=== PATIENT | female | born 1940 | race Caucasian/White ===

== ENCOUNTER 2016-09-05 12:55 | Emergency (ER) | payer MEDICARE, BC ==
[2015-01-08 08:18] VITALS: BMI 23.3
[~2016-09-05 12:55] MED LIST: AVAPRO75 MG PO; BAYER CHEWABLE81 MG PO; BIOTIN5 MG PO; CALCIUM 500 + D1 TAB PO; DITROPAN X10 MG/BOTT PO; LUTEIN20 MG PO; METROLOTION59 ML TP; MIRALAX17 GM PO; MULTIPLE VITAMI1 TA1 PO; PRAVACHOL20 MG PO; PROTONIX40 MG PO; SYNTHROID50 MCG PO
== END 2016-09-05 15:11 | disposition home or self-care (01) ==
LOC: D.ER 12:55
DX: S50.12XA Contusion of left forearm, initial encounter (principal); W19.XXXA Unspecified fall, initial encounter; Y93.89 Activity, other specified; Y92.89 Other specified places as the place of occurrence of the external cause; S20.212A Contusion of left front wall of thorax, initial encounter; S80.02XA Contusion of left knee, initial encounter; E07.9 Disorder of thyroid, unspecified; I10 Essential (primary) hypertension; E78.00 Pure hypercholesterolemia, unspecified

== ENCOUNTER 2016-09-18 05:51 | Day surgery (SDC) | payer MEDICARE, BC ==
[2016-09-17 12:19] LABS: HEMATOCRIT 43.2 % (36.0-48.0); HEMOGLOBIN 13.9 g/dL (12-16); MCH 28.6 pg (26.0-34.0); MCHC 32.2 g/dL (31.0-37.0); MCV 88.9 fL (80.0-100.0); MEAN PLATELET VOLUME 11.9 fL (7.4-10.4); RBC 4.86 10x6/uL (4.00-5.40); RDW 14.3 % (11.5-14.5); WBC 11.9 10x3/uL (4.8-10.8)
[~2016-09-18] VITALS: Ht 162.6 cm; Wt 63.0 kg
[~2016-09-18 05:51] MED LIST changes: +LIPITOR10 MG PO; +PRESERVISION AR1 CAP PO
[2016-09-18 08:22] VITALS: Ht 162.6 cm; Wt 63.0 kg
[2016-09-18] MEDS ORDERED: HYDROCODONE-APA1 TAB PO (10:58)
--- NOTE | 2016-09-18 13:14 | NUR ---
1210--IV DC'D. CARLOS MATHEWS 1220--DISCHARGE INSTRUCTIONS GIVEN, PT VERBALIZES UNDERSTANDING. PT OFF UNIT VIA WC. CARLOS MATHEWS
--- NOTE | 2016-10-16 14:01 | OP ---
PATIENT NAME: EDWAR CHRISTENSEN MEDICAL RECORD: [id number] :40 LOCATION:D.OPS ADMISSION DATE: SURGEON: IBIS ROSALES MD DATE OF OPERATION: 09/18/2016 Orthopedic Surgery Operative Note PREOPERATIVE DIAGNOSIS: Hematoma of left forearm. POSTOPERATIVE DIAGNOSIS: Hematoma of left forearm. PROCEDURE: Debridement of hematoma of left forearm. SURGEON: Ibis Rosales MD ANESTHESIA: General. INTRAOPERATIVE COMPLICATIONS: None. SUMMARY OF PATHOLOGIC FINDINGS: Essentially none. The patient had a large hematoma of the left forearm consistent with the preoperative diagnosis, quite simply had lasted for over 3 weeks. OPERATIVE SUMMARY IN DETAIL: After obtaining the appropriate preoperative orthopedic surgery consent as well as anesthetic consultation, evaluation and clearance, the patient was brought to the operating room and placed on the operating table in supine position. After adequate general laryngeal mask airway was administered, the patient's left forearm was prepped and draped in routine sterile fashion. Incision was made directly over the hematoma whereupon the hematoma came out still gelatinous and not at all with lysis. The entire area was cleaned out using a bulb syringe, as well as curettage and rongeur to be sure that all the edges were free from clot. Having completed this, the wound was closed with #1 Vicryl followed by 2-0 Vicryl and skin lavonne. Sterile dressings were applied. The patient was awakened, taken to recovery room in stable condition. All final needle and sponge counts were correct. TRANSINT:[id number] Voice Confirmation ID: [id number] DOCUMENT ID: [id number] IBIS ROSALES MD at 1401 CC: [id number] DICTATION DATE: 10/13/16 1644 WAREHOUSE TEAM LEADER: 10/13/16 2359 [facility] 09/18/16 [place] [address]
== END 2016-09-18 12:20 | disposition home or self-care (01) ==
LOC: D.OPS 05:51 → D.PAN 10:00 → D.OPS 10:00
PROVIDERS: Anesthesiology
DX: S59.812A Other specified injuries left forearm, initial encounter (principal); Z01.812 Encounter for preprocedural laboratory examination; X58.XXXA Exposure to other specified factors, initial encounter

== ENCOUNTER → 2018-02-25 08:32 | Outpatient (CLI) | payer MEDICARE, BC ==
[2016-09-18 08:22] VITALS: BMI 23.9
[~2018-02-25 08:32] MED LIST changes: +HYDROCODONE-APA1 TAB PO
== END | disposition home or self-care (01) ==
LOC: D.MRI 08:32
DX: M54.16 Radiculopathy, lumbar region (principal)

== ENCOUNTER 2018-07-17 10:19 | Emergency (ER) | payer MEDICARE, BC ==
[~2018-07-17] VITALS: Ht 162.6 cm; Wt 63.6 kg
[2018-07-17 10:24] VITALS: Ht 162.6 cm; Wt 63.6 kg
[2018-07-17] MEDS ORDERED: LOZOL1.25 MG PO (10:29)
[2018-07-17] MEDS ORDERED: LEXAPRO5 MG PO (10:29)
[2018-07-17] MEDS ORDERED: ZETIA10 MG PO (10:29)
[2018-07-17] MEDS ORDERED: XARELTO20 MG PO (10:30)
[2018-07-17] MEDS ORDERED: OXYBUTYNIN CHLOR5 MG PO (10:30)
[2018-07-17] MEDS ORDERED: ULTRAM50 MG PO (10:30)
[2018-07-17] MEDS ORDERED: IMBRUVICA140 MG PO (10:31)
[2018-07-17 11:00] LABS: BASOPHILS 0.1 % (0-2); EOSINOPHILS 1.1 % (0-7); HEMATOCRIT 40.3 % (36.0-48.0); IMMATURE GRANULOCYTES 0.2 % (0-5); LYMPHOCYTES 18.5 % (15-50); MCH 28.7 pg (26.0-34.0); MCHC 32.3 g/dL (31.0-37.0); MONOCYTES 8.9 % (2-11); NEUTROPHILS 71.2 % (40-80); PLATELET COUNT 154 10x3/uL (130-400); RBC 4.53 10x6/uL (4.00-5.40); RDW 14.4 % (11.5-14.5); WBC 10.8 10x3/uL (4.8-10.8)
[2018-07-17 11:05] LABS: ALBUMIN 3.4 g/dL (3.4-5.0); ANION GAP 8.3 mmol/L (8-16); BILIRUBIN - TOTAL 0.67 mg/dL (0.2-1.3); CALCIUM 8.7 mg/dL (8.5-10.1); CARBON DIOXIDE 34.5 mmol/L (21.0-32.0); CREATININE - SERUM 0.9 mg/dL (0.6-1.3); POTASSIUM - SERUM 3.8 mmol/L (3.5-5.1); PROTEIN - SERUM 6.6 g/dL (6.4-8.2)
[2018-07-17 14:44] VITALS: BP 128/68
[2018-07-18] MEDS ORDERED: PROBIOTIC1 EAC1 PO (16:45)
== END 2018-07-17 14:45 | disposition home or self-care (01) ==
LOC: D.ER 10:19
PROVIDERS: Emergency Medicine
DX: M25.562 Pain in left knee (principal)

== ENCOUNTER 2018-07-18 11:41 | Inpatient (IN) | payer MEDICARE, BC ==
[~2018-07-18] VITALS: Ht 165.1 cm; Wt 63.5 kg
[~2018-07-18 11:41] MED LIST changes: +IMBRUVICA140 MG PO; +LEXAPRO5 MG PO; +LOZOL1.25 MG PO; +OXYBUTYNIN CHLOR5 MG PO; +ULTRAM50 MG PO; +XARELTO20 MG PO; +ZETIA10 MG PO
[2018-07-18 13:00] VITALS: BP 119/78
[2018-07-18 13:29] LABS: HEMATOCRIT 40.1 % (36.0-48.0); MCH 28.8 pg (26.0-34.0); MCHC 32.4 g/dL (31.0-37.0); MCV 88.7 fL (80.0-100.0); MEAN PLATELET VOLUME 12.8 fL (7.4-10.4); PLATELET COUNT 143 10x3/uL (130-400); RBC 4.52 10x6/uL (4.00-5.40); RDW 14.2 % (11.5-14.5); WBC 9.8 10x3/uL (4.8-10.8)
[2018-07-18 13:45] LABS: ALBUMIN 3.4 g/dL (3.4-5.0); ANION GAP 10.7 mmol/L (8-16); BILIRUBIN - TOTAL 0.64 mg/dL (0.2-1.3); C-REACTIVE PROTEIN 6.9 mg/dL (0.0-0.9); CALCIUM 8.9 mg/dL (8.5-10.1); CARBON DIOXIDE 30.8 mmol/L (21.0-32.0); CREATININE - SERUM 0.9 mg/dL (0.6-1.3); POTASSIUM - SERUM 3.5 mmol/L (3.5-5.1); PROTEIN - SERUM 6.8 g/dL (6.4-8.2)
[2018-07-18 13:57] LABS: EOSINOPHILS 2 % (0-7); LYMPHOCYTES 10 % (15-50); MONOCYTES 10 % (2-11); NEUTROPHILS 76 % (40-80); PLATELET ESTIMATE NORMAL; PLATELET MORPHOLOGY GIANT PLTS PRESENT
[2018-07-18 14:00] VITALS: BP 122/62
[2018-07-18 14:16] LABS: INR 3.52 (0.85-1.17); PROTIME 34.5 SECONDS (11.6-15.0)
[2018-07-18 15:00] VITALS: BP 124/63
[2018-07-18 16:00] VITALS: BP 126/60
[2018-07-18] MEDS ORDERED: PROBIOTIC1 EAC1 PO (16:45)
--- NOTE | 2018-07-18 16:49 | NUR ---
RECIEVED PATIENT FROM ER VIA WHEELCHAIR. AA0X4. ON ROOM AIR, AMBULATORY. C/O POSTERIOR LEFT KNEE PAIN THAT IS AGGRAVATED BY MOVEMENT. IV TO LEFT FOREARM PATENT. DENIES ANY CURRENT NEEDS OR DISCOMFORTS, BED LOWERED AND LOCKED, CALL LIGHT WITHIN REACH. CPOC
[2018-07-18 17:35] VITALS: BP 114/45
[2018-07-18 20:38] LABS: BASOPHILS 0.1 % (0-2); HEMATOCRIT 34.3 % (36.0-48.0); IMMATURE GRANULOCYTES 0.3 % (0-5); LYMPHOCYTES 19.7 % (15-50); MCH 28.6 pg (26.0-34.0); MCHC 32.1 g/dL (31.0-37.0); MCV 89.1 fL (80.0-100.0); MEAN PLATELET VOLUME 12.7 fL (7.4-10.4); MONOCYTES 10.4 % (2-11); NEUTROPHILS 67.5 % (40-80); PLATELET COUNT 144 10x3/uL (130-400); RBC 3.85 10x6/uL (4.00-5.40); RDW 14.4 % (11.5-14.5); WBC 9.7 10x3/uL (4.8-10.8)
[2018-07-18 21:05] LABS: INR 2.13 (0.85-1.17); PROTIME 23.1 SECONDS (11.6-15.0)
[2018-07-18 21:21] LABS: ALBUMIN 2.8 g/dL (3.4-5.0); ANION GAP 6.8 mmol/L (8-16); BILIRUBIN - TOTAL 0.39 mg/dL (0.2-1.3); CALCIUM 7.8 mg/dL (8.5-10.1); CARBON DIOXIDE 31.5 mmol/L (21.0-32.0); CREATININE - SERUM 0.9 mg/dL (0.6-1.3); POTASSIUM - SERUM 3.3 mmol/L (3.5-5.1); PROTEIN - SERUM 5.1 g/dL (6.4-8.2)
[2018-07-18 22:39] LABS: APTT 40.8 SECONDS (22.8-39.4)
[2018-07-19] VITALS: BP 116/38
--- NOTE | 2018-07-19 02:07 | NUR ---
RESULTES FROM MRI IN. PAGE TO DR. ROSALES X2 AWATTING CALL BACK.
[2018-07-19 04:00] VITALS: BP 122/41
[2018-07-19 06:55] LABS: BASOPHILS 0.1 % (0-2); EOSINOPHILS 1.8 % (0-7); HEMATOCRIT 31.3 % (36.0-48.0); IMMATURE GRANULOCYTES 0.2 % (0-5); LYMPHOCYTES 16.8 % (15-50); MCH 28.4 pg (26.0-34.0); MCHC 31.9 g/dL (31.0-37.0); MCV 88.9 fL (80.0-100.0); MEAN PLATELET VOLUME 13.1 fL (7.4-10.4); MONOCYTES 12.1 % (2-11); PLATELET COUNT 149 10x3/uL (130-400); RBC 3.52 10x6/uL (4.00-5.40); RDW 14.5 % (11.5-14.5); WBC 9.6 10x3/uL (4.8-10.8)
[2018-07-19 07:07] LABS: CALC OSMOLALITY 273 mosm/kg (275-300); CALCIUM 7.7 mg/dL (8.5-10.1); CARBON DIOXIDE 30.9 mmol/L (21.0-32.0); CHLORIDE - SERUM 102 mmol/L (98-107); CREATININE - SERUM 0.6 mg/dL (0.6-1.3); GLUCOSE 105 mg/dL (74-106); POTASSIUM - SERUM 3.5 mmol/L (3.5-5.1); SODIUM 137 mmol/L (136-145); UREA NITROGEN 13 mg/dL (7-18); eGFR NON AFRICAN AMERICAN > 90 mL/min (90-120)
--- NOTE | 2018-07-19 07:18 | NUR ---
PT IS RESTING IN BED WITH EYES CLOSED. RESPIRATIONS ARE EVEN AND UNLABORED. PT IS EASILY AROUSED WITH VERBAL STIMULATION. PT C/O SORENESS TO LLE. LLE IS WARM TO TOUCH, NO REDNESS NOTED. PT DENIES NEEDS AT THIS TIME. BED IS IN THE LOWEST POSITION. CALL LIGHT AND BEDSIDE TABLE ARE WITHIN REACH. WILL CONT TO MONITOR.
[2018-07-19 08:38] LABS: CKMB 0.6 U/L (0.0-3.6); CREATINE KINASE 89 UL (21-215)
[2018-07-19 08:55] VITALS: BP 114/31
[2018-07-19 09:06] LABS: ERYTHROCYTE SEDIMENTATION RATE 20 mm/hr (0-30)
--- NOTE | 2018-07-19 09:45 | NUR ---
IR- KNEE ASPIRATION FOR THURSDAY-DUE TO [facility] ON 07/18.
[2018-07-19 13:00] VITALS: BP 124/39
[2018-07-19 13:31] LABS: % SATURATION 12 % (15-55); IRON 23 ug/dl (35-150); TOTAL IRON BIND CAPACITY 185 ug/dl (260-445); UNSAT IRON BIND CAPACITY 162 ug/dl (150-375)
[2018-07-19 13:40] LABS: COLOR YELLOW (YELLOW)
[2018-07-19 13:41] LABS: APPEARANCE CLEAR (CLEAR); BILIRUBIN NEGATIVE (NEGATIVE); GLUCOSE NEGATIVE (NEGATIVE); KETONE NEGATIVE (NEGATIVE); NITRITE NEGATIVE (NEGATIVE); PROTEIN NEGATIVE (NEGATIVE); UROBILINOGEN NORMAL (NORMAL)
[2018-07-19 13:45] LABS: FERRITIN 94 ng/mL (3-244); LDH 160 U/L (81-234)
[2018-07-19 13:46] LABS: BACTERIA FEW /hpf (NONE SEEN); EPITHELIAL CELLS 0-5 /hpf (0-5); MUCUS <1+ /lpf (NONE SEEN); RED CELLS - URINE 0-5 /hpf (0-5); WHITE CELLS - URINE 0-5 /hpf (0-5)
[2018-07-19 14:43] VITALS: Ht 165.1 cm; Wt 63.5 kg
[2018-07-19 16:00] VITALS: BP 123/56
[2018-07-19 20:00] VITALS: BP 160/84
--- NOTE | 2018-07-20 02:48 | NUR ---
AT SHIFT CHGE. REC'D. COMING OUT OF BATHROOM.CONTINUES TO C/O TENDERNESS BEHIND LEFT KNEE WHEN TOUCHED DENIES CALF PAIN ON DORSIFLEXION GOOD PEDAL PULSE.SM. AMT. SWELLING OBSERVED. ELEVATED ON PILLOW WITH NO C/O DECREASE IN SENSATIO.WILL CONTINUE TO MONITOR AND FOLLOW CURRENT PLAN OF CARE
[2018-07-20 04:00] VITALS: BP 137/52
--- NOTE | 2018-07-20 04:00 | NUR ---
I have reviewed this patient and I concur with the Shift Assessment completed by the Licensed Practical Nurse today this shift.
[2018-07-20 06:55] LABS: CALC OSMOLALITY 281 mosm/kg (275-300); CALCIUM 7.6 mg/dL (8.5-10.1); CARBON DIOXIDE 29.5 mmol/L (21.0-32.0); CHLORIDE - SERUM 106 mmol/L (98-107); CREATINE KINASE 94 UL (21-215); CREATININE - SERUM 0.6 mg/dL (0.6-1.3); GLUCOSE 98 mg/dL (74-106); POTASSIUM - SERUM 3.3 mmol/L (3.5-5.1); SODIUM 142 mmol/L (136-145); UREA NITROGEN 10 mg/dL (7-18); eGFR NON AFRICAN AMERICAN > 90 mL/min (90-120)
[2018-07-20 07:01] LABS: BASOPHILS 0 % (0-2); EOSINOPHILS 2.8 % (0-7); HEMATOCRIT 31.4 % (36.0-48.0); IMMATURE GRANULOCYTES 0.4 % (0-5); LYMPHOCYTES 18.4 % (15-50); MCH 28.6 pg (26.0-34.0); MCHC 31.8 g/dL (31.0-37.0); MCV 89.7 fL (80.0-100.0); MEAN PLATELET VOLUME 12.8 fL (7.4-10.4); NEUTROPHILS 66.4 % (40-80); PLATELET COUNT 148 10x3/uL (130-400); RDW 14.3 % (11.5-14.5); WBC 7.2 10x3/uL (4.8-10.8)
[2018-07-20 08:52] VITALS: BP 163/59
[2018-07-20 09:17] LABS: FOLATE (FOLIC ACID) - SERUM >20.0 ng/mL (>3.0)
--- NOTE | 2018-07-20 10:00 | NUR ---
PT AAOX4 RESP EVEN AND NONLABORED, NO SIGNS OF DISTRESS NOTED, NO NEEDS EXPRESSED AT THIS TIME, WANTING TO KNOW ABOUT WHEN THE ASPRIATION WILL BE DONE I EXPRESSED TO PT THAT I WOULD HAVE TO CHECK WITH THE PANFILO MINOR IN REACH
[2018-07-20 10:46] LABS: INR 1.06 (0.85-1.17); PROTIME 13.3 SECONDS (11.6-15.0)
--- NOTE | 2018-07-20 10:59 | MORECARE ---
CASE MANAGEMENT DISCHARGE SUMMARY PATIENT: EDWAR CHRISTENSEN UNIT: [id number] ADM DATE: 07/19/18 AGE: 78 : 40 SEX: F ROOM/BED: D.2239 AUTHOR: LISET NGUYEN PHYSICIAN: REFERRING PHYSICIAN: KAREN RHODES MD DATE OF SERVICE: 07/20/18 Discharge Plan Patient Name: EDWAR CHRISTENSEN Facility: [facility]:[place] : 1940 Planned Disposition: Home Anticipated Discharge Date: Discharge Date: Expected LOS: Initial Reviewer: [email or web address] Initial Review Date: 07/20/2018 Generated: 07/20/18 11:59 am DCPIA - Discharge Planning Initial Assessment Updated by [email or web address]: Yasemin Xiong on 07/20/18 10:58 am * Is the patient Alert and Oriented? Yes * How many steps to enter\exit or inside your home? 2/0 * PCP Dr. Sterling * Pharmacy [address] [facility] * Preadmission Environment Home with Family * ADLs Partial Dependent * Partial ADLs (Assistance needed) Ambulation * Equipment Cane Rolling Walker Wheelchair * List name and contact numbers for known caregivers / representatives who currently or will assist patient after discharge: Dom Yukijuly * Verbal permission to speak to the caregivers and representatives has been obtained from the patient. Yes * Community resources currently utilized None * Additional services required to return to the preadmission environment? No * Can the patient safely return to the preadmission environment? Yes * Has this patient been hospitalized within the prior 30 days at any hospital? No Patient Name: EDWAR CHRISTENSEN Page [id number] at 1059 All edits/amendments must be made on the electronic document DICTATION DATE: 07/20/18 105 UNDERWRITING CONSULTANT: LOI 07/20/18 1059 RPT#: [id number] DC DATE: STATUS: ADM IN [facility] [address] [place] [address] END OF REPORT
--- NOTE | 2018-07-20 11:08 | MORECARE ---
CASE MANAGEMENT DISCHARGE SUMMARY PATIENT: EDWAR OSCAR UNIT: [id number] ADM DATE: 07/19/18 AGE: 78 : 40 SEX: F ROOM/BED: D.2239 AUTHOR: WENDY,DOC PHYSICIAN: REFERRING PHYSICIAN: KAREN RHODES MD DATE OF SERVICE: 07/20/18 Discharge Plan Patient Name: EDWAR OSCAR Facility: [facility]:[place] : 1940 Planned Disposition: Home Anticipated Discharge Date: Discharge Date: Expected LOS: Initial Reviewer: [email or web address] Initial Review Date: 07/20/2018 Generated: 07/20/18 12:08 pm Comments DCP- Discharge Planning Updated by [email or web address]: Yasemin Xiong on 07/20/18 10:[address] Patient Name: EDWAR OSCAR Admission Status: ER Accout number: [id number] Admission Date: 07-19-2018 : 1940 Admission Diagnosis: Attending: KAREN RHODES Current LOS: 1 Anticipated DC Date: Planned Disposition: Home Primary Insurance: MEDICARE A & B Discharge Planning Comments: CM met with patient and her to discuss discharge planning/needs. She is getting in the shower and gives permission to speak with her concerning discharge plan. He states she lives with him. She is independent with all ADL's and AIDL's. States she has been using the walker the last few days prior to admission to aide in ambulation. I discussed availability of SNF, inpatient rehab, additional DME and home health services. At this time, declines needs. States "unsure of what we need until we know how her knee gets." CM will continue to follow and assist with discharge planning/needs. Bacon De Rinder: Yasemin Xiong DCPIA - Discharge Planning Initial Assessment Updated by [email or web address]: Yasemin Xiong on 07/20/18 10:58 am * Is the patient Alert and Oriented? Yes * How many steps to enter\\exit or inside your home? 2/0 * PCP Dr. Sterling * Pharmacy [facility] by [facility] * Preadmission Environment Home with Family * ADLs Partial Dependent * Partial ADLs (Assistance needed) Ambulation * Equipment Cane Rolling Walker Wheelchair * List name and contact numbers for known caregivers / representatives who currently or will assist patient after discharge: Dom Oscar * Verbal permission to speak to the caregivers and representatives has been obtained from the patient. Yes * Community resources currently utilized None * Additional services required to return to the preadmission environment? No * Can the patient safely return to the preadmission environment? Yes * Has this patient been hospitalized within the prior 30 days at any hospital? No Last DP export: 07/20/18 9:59 a Patient Name: EDWAR OSCAR Page 73730 at 1108 All edits/amendments must be made on the electronic document DICTATION DATE: 07/20/181107 HUB CUTTER: LOI 07/20/181107 RPT#: [id number] DC DATE: STATUS: ADM IN [facility] [address] [place] [address] END OF REPORT
[2018-07-20 12:23] LABS: APPEARANCE CLEAR (CLEAR); BILIRUBIN NEGATIVE (NEGATIVE); COLOR YELLOW (YELLOW); GLUCOSE NEGATIVE (NEGATIVE); KETONE NEGATIVE (NEGATIVE); NITRITE NEGATIVE (NEGATIVE); PROTEIN NEGATIVE (NEGATIVE); UROBILINOGEN NORMAL (NORMAL)
[2018-07-20 12:24] LABS: BACTERIA MODERATE /hpf (NONE SEEN); EPITHELIAL CELLS 0-5 /hpf (0-5); MUCUS <1+ /lpf (NONE SEEN); RED CELLS - URINE 0-5 /hpf (0-5)
[2018-07-20 13:49] VITALS: BP 143/48
[2018-07-20 16:39] VITALS: BP 145/85
--- NOTE | 2018-07-20 18:59 | NUR ---
I have reviewed this patient and I concur with the Shift Assessment completed by the Licensed Practical Nurse today this shift.
[2018-07-20 20:27] VITALS: BP 140/50
[2018-07-20 20:58] LABS: EOS BF 1 %; MACROPHAGES BF 73 %; NEUT - BF 14 %
[2018-07-20 21:00] LABS: PROTEIN - BODY FLUID 2.1 G/DL
--- NOTE | 2018-07-20 21:32 | NUR ---
AWAKE,ALERT.NO COMPLAINTS VOICED. IV INFUSING TO LFA WITHOUT REDNESS OR EDEMA NOTED.LEFT KNEE WITH MILD EDEMA NOTED.K-PAD INTACT. NO DISTRESS NOTED. CL IN REACH
[2018-07-21 00:40] VITALS: BP 135/57
[2018-07-21 02:15] LABS: INR 1.05 (0.85-1.17); PROTIME 13.2 SECONDS (11.6-15.0)
--- NOTE | 2018-07-21 04:34 | NUR ---
I have reviewed this patient and I concur with the Shift Assessment completed by the Licensed Practical Nurse today this shift.
[2018-07-21 04:47] VITALS: BP 150/80
[2018-07-21 05:26] LABS: BASOPHILS 0.1 % (0-2); EOSINOPHILS 0.7 % (0-7); HEMATOCRIT 29.1 % (36.0-48.0); HEMOGLOBIN 9.3 g/dL (12-16); IMMATURE GRANULOCYTES 0.4 % (0-5); LYMPHOCYTES 13.1 % (15-50); MCH 28.4 pg (26.0-34.0); MCV 88.7 fL (80.0-100.0); MEAN PLATELET VOLUME 12.9 fL (7.4-10.4); MONOCYTES 9.6 % (2-11); NEUTROPHILS 76.1 % (40-80); PLATELET COUNT 175 10x3/uL (130-400); RBC 3.28 10x6/uL (4.00-5.40); RDW 13.9 % (11.5-14.5)
[2018-07-21 05:31] LABS: WBC 10.6 10x3/uL (4.8-10.8)
[2018-07-21 06:06] LABS: CALC OSMOLALITY 287 mosm/kg (275-300); CALCIUM 7.5 mg/dL (8.5-10.1); CARBON DIOXIDE 27.4 mmol/L (21.0-32.0); CHLORIDE - SERUM 108 mmol/L (98-107); CREATININE - SERUM 0.7 mg/dL (0.6-1.3); GLUCOSE 101 mg/dL (74-106); POTASSIUM - SERUM 3.4 mmol/L (3.5-5.1); SODIUM 144 mmol/L (136-145); eGFR NON AFRICAN AMERICAN 86 mL/min (90-120)
[2018-07-21 06:29] LABS: UREA NITROGEN 15 mg/dL (7-18)
--- NOTE | 2018-07-21 07:15 | NUR ---
REC'D IN WALKING ROUNDS AWAKE AND ALERT. RESP EVEN AND UNLABORED WITH NO DISTRESS NOTED. CAN EXPRESS NEEDS AND WANTS WITH NO NOTED OR VOICED. ASSESSMENT COMPLETED. C/L IN REACH AT BEDSIDE.
[2018-07-21 09:19] VITALS: BP 154/52
[2018-07-21 12:43] VITALS: BP 145/69
[2018-07-21 14:13] LABS: RMSF IGM 0.15 index (0.00-0.89)
--- NOTE | 2018-07-21 14:56 | NUR ---
NUTRITION F/U DIET ADVANCED TO REG. 100% INTAKE RECENT MEALS. WILL CONTINUE TO HONOR FOOD PREFERENCES, MONITOR PO INTAKE. RD FOLLOWING
[2018-07-21 16:14] VITALS: BP 127/59
--- NOTE | 2018-07-21 19:24 | NUR ---
I have reviewed this patient and I concur with the Shift Assessment completed by the Licensed Practical Nurse today this shift.
[2018-07-21 21:02] VITALS: BP 144/43
--- NOTE | 2018-07-21 21:10 | NUR ---
AWAKE,WATCHING TV QUIETLY. NO DISTRESS NOTED. NO COMPLAITNS VOICED. REFUSED TO SIGN PERMIT FOR PROCEDURE IN AM. STATES D[employer] ARCHITECT HAS ALREADY ASPIRATED MY NEED SO NO IM NOT SIGNING IT. CL IN REACH
--- NOTE | 2018-07-22 04:53 | NUR ---
I have reviewed this patient and I concur with the Shift Assessment completed by the Licensed Practical Nurse today this shift.
[2018-07-22 05:07] LABS: BASOPHILS 0.1 % (0-2); EOSINOPHILS 3.9 % (0-7); HEMATOCRIT 29.8 % (36.0-48.0); HEMOGLOBIN 9.6 g/dL (12-16); IMMATURE GRANULOCYTES 0.6 % (0-5); LYMPHOCYTES 14.3 % (15-50); MCH 28.7 pg (26.0-34.0); MCHC 32.2 g/dL (31.0-37.0); MCV 89.2 fL (80.0-100.0); MEAN PLATELET VOLUME 12.6 fL (7.4-10.4); MONOCYTES 10.7 % (2-11); NEUTROPHILS 70.4 % (40-80); RBC 3.34 10x6/uL (4.00-5.40); RDW 14.1 % (11.5-14.5)
[2018-07-22 05:10] LABS: PLATELET COUNT 214 10x3/uL (130-400)
[2018-07-22 05:19] LABS: CALC OSMOLALITY 286 mosm/kg (275-300); CALCIUM 7.6 mg/dL (8.5-10.1); CARBON DIOXIDE 27.5 mmol/L (21.0-32.0); CHLORIDE - SERUM 107 mmol/L (98-107); CREATININE - SERUM 0.6 mg/dL (0.6-1.3); GLUCOSE 89 mg/dL (74-106); POTASSIUM - SERUM 3.4 mmol/L (3.5-5.1); SODIUM 144 mmol/L (136-145); UREA NITROGEN 14 mg/dL (7-18); eGFR NON AFRICAN AMERICAN > 90 mL/min (90-120)
[2018-07-22] MEDS ORDERED: MULTAQ400 MG PO (06:25)
--- NOTE | 2018-07-22 07:30 | NUR ---
REC'D IN BED AWAKE AND ALERT. RESP EVEN AND UNLABORED WITH NO DISTRESS NOTED. CAN EXPRESS NEEDS AND WANTS. NO C/O NOTED OR VOICED. ASSESSMENT COMPLETED. C/L IN REACH AT BEDSIDE.
[2018-07-22 09:35] VITALS: BP 124/70
--- NOTE | 2018-07-22 10:00 | MORECARE ---
CASE MANAGEMENT DISCHARGE SUMMARY PATIENT: EDWAR OSCAR UNIT: [id number] ADM DATE: 07/19/18 AGE: 78 : 40 SEX: F ROOM/BED: D.2239 AUTHOR: WENDY,DOC PHYSICIAN: REFERRING PHYSICIAN: KAREN RHODES MD DATE OF SERVICE: 07/22/18 Discharge Plan Patient Name: EDWAR OSCAR Facility: [facility]:[place] : 1940 Planned Disposition: Home Anticipated Discharge Date: Discharge Date: Expected LOS: Initial Reviewer: [email or web address] Initial Review Date: 07/20/2018 Generated: 07/22/18 11:00 am Comments DCP- Discharge Planning Updated by [id number]: Yasemin Xiong on 07/20/18 10:[address] Patient Name: EDWAR OSCAR Admission Status: ER Accout number: [id number] Admission Date: 07-19-2018 : 1940 Admission Diagnosis: Attending: KAREN RHODES Current LOS: 1 Anticipated DC Date: Planned Disposition: Home Primary Insurance: MEDICARE A & B Discharge Planning Comments: CM met with patient and her to discuss discharge planning/needs. She is getting in the shower and gives permission to speak with her concerning discharge plan. He states she lives with him. She is independent with all ADL's and AIDL's. States she has been using the walker the last few days prior to admission to aide in ambulation. I discussed availability of SNF, inpatient rehab, additional DME and home health services. At this time, declines needs. States "unsure of what we need until we know how her knee gets." CM will continue to follow and assist with discharge planning/needs. Dockworker: Yasemin Xiong DCPIA - Discharge Planning Initial Assessment Updated by [email or web address]: Yasemin Xiong on 07/20/18 10:58 am * Is the patient Alert and Oriented? Yes * How many steps to enter\\exit or inside your home? 2/0 * PCP Dr. Sterling * Pharmacy [facility] by [facility] * Preadmission Environment Home with Family * ADLs Partial Dependent * Partial ADLs (Assistance needed) Ambulation * Equipment Cane Rolling Walker Wheelchair * List name and contact numbers for known caregivers / representatives who currently or will assist patient after discharge: Dom Oscar * Verbal permission to speak to the caregivers and representatives has been obtained from the patient. Yes * Community resources currently utilized None * Additional services required to return to the preadmission environment? No * Can the patient safely return to the preadmission environment? Yes * Has this patient been hospitalized within the prior 30 days at any hospital? No External Providers External Provider: [facility] Next Contact Date: Service Request Date: Service Type: Resolution: Reviewer: Comments: Last DP export: 07/20/18 10:08 a Patient Name: EDWAR OSCAR Page 89930 at 1000 All edits/amendments must be made on the electronic document DICTATION DATE: 07/22/18958 GRAINER MACHINE: LOI 07/22/1859 RPT#: [id number] DC DATE: STATUS: ADM IN [facility] [address] [place] [address] END OF REPORT
--- NOTE | 2018-07-22 10:07 | MORECARE ---
CASE MANAGEMENT DISCHARGE SUMMARY PATIENT: EDWAR OSCAR UNIT: [id number] ADM DATE: 07/19/18 AGE: 78 : 40 SEX: F ROOM/BED: D.2239 AUTHOR: WENDY,DOC PHYSICIAN: REFERRING PHYSICIAN: KAREN RHODES MD DATE OF SERVICE: 07/22/18 Discharge Plan Patient Name: EDWAR OSCAR Facility: [facility]:[place] : 1940 Planned Disposition: Home Anticipated Discharge Date: Discharge Date: Expected LOS: Initial Reviewer: [email or web address] Initial Review Date: 07/20/2018 Generated: 07/22/18 11:07 am Comments DCP- Discharge Planning Updated by [email or web address]: Yasemin Xiong on 07/22/18 9:[address] CM met with patient to discuss discharge planning. ANA LUISA for [facility] for SNF signed. I spoke with Judi at [facility] and clinical faxed. CM will continue to follow and assist with discharge planning/needs. DCP- Discharge Planning Updated by [email or web address]: Yasemin Xiong on 07/20/18 10:[address] Patient Name: EDWAR OSCAR Admission Status: ER Accout number: [id number] Admission Date: 07-19-2018 : 1940 Admission Diagnosis: Attending: KAREN RHODES Current LOS: 1 Anticipated DC Date: Planned Disposition: Home Primary Insurance: MEDICARE A & B Discharge Planning Comments: CM met with patient and her to discuss discharge planning/needs. She is getting in the shower and gives permission to speak with her concerning discharge plan. He states she lives with him. She is independent with all ADL's and AIDL's. States she has been using the walker the last few days prior to admission to aide in ambulation. I discussed availability of SNF, inpatient rehab, additional DME and home health services. At this time, declines needs. States "unsure of what we need until we know how her knee gets." CM will continue to follow and assist with discharge planning/needs. Radiology Technologist: Yasemin Xiong DCPIA - Discharge Planning Initial Assessment Updated by [email or web address]: Yasemin Xiong on 07/20/18 10:58 am * Is the patient Alert and Oriented? Yes * How many steps to enter\\exit or inside your home? 2/0 * PCP Dr. Sterling * Pharmacy [address] [facility] * Preadmission Environment Home with Family * ADLs Partial Dependent * Partial ADLs (Assistance needed) Ambulation * Equipment Cane Rolling Walker Wheelchair * List name and contact numbers for known caregivers / representatives who currently or will assist patient after discharge: Dom Oscar * Verbal permission to speak to the caregivers and representatives has been obtained from the patient. Yes * Community resources currently utilized None * Additional services required to return to the preadmission environment? No * Can the patient safely return to the preadmission environment? Yes * Has this patient been hospitalized within the prior 30 days at any hospital? No Last DP export: 07/22/18 9:00 a Patient Name: EDWAR OSCAR Page 88349 at 1007 All edits/amendments must be made on the electronic document DICTATION DATE: 07/22/18 1006 DRAWER HARDWARE WORKER: LOI 07/22/18 1006 RPT#: [id number] DC DATE: STATUS: ADM IN [facility] [address] [place] [address] END OF REPORT
[2018-07-22 13:15] LABS: F. TULARENSIS - IGG Negative (Negative); F. TULARENSIS - IGM Negative (Negative)
[2018-07-22 13:24] VITALS: BP 162/48
[2018-07-22 14:13] LABS: EHRLICHIA CHAFF IGG Negative (Neg:<1:64); EHRLICHIA CHAFF IGM Negative (Neg:<1:20); HGE IGG TITER Negative (Neg:<1:64); HGE IGM TITER Negative (Neg:<1:20)
--- NOTE | 2018-07-22 14:56 | NUR ---
I have reviewed this patient and I concur with the Shift Assessment completed by the Licensed Practical Nurse today this shift.
[2018-07-22 17:46] VITALS: BP 172/60
[2018-07-22 20:00] VITALS: BP 143/55
--- NOTE | 2018-07-22 21:10 | NUR ---
AWAKE,ALERT.NO COMPLAINTS VOICED. RESP EVEN AND UNLABORED.NO DISTRESS NOTED. CONTINUES TO HAVE BRUISING TO BACK OF LEG AND MILD EDEMA TO KNEE. CL IN REACH
--- NOTE | 2018-07-23 02:55 | NUR ---
I have reviewed this patient and I concur with the Shift Assessment completed by the Licensed Practical Nurse today this shift.
[2018-07-23 04:00] VITALS: BP 120/77; BP 126/71
[2018-07-23 05:52] LABS: BASOPHILS 0.1 % (0-2); EOSINOPHILS 2.7 % (0-7); HEMOGLOBIN 10.3 g/dL (12-16); IMMATURE GRANULOCYTES 0.5 % (0-5); LYMPHOCYTES 13.3 % (15-50); MCH 28.2 pg (26.0-34.0); MCHC 32.2 g/dL (31.0-37.0); MCV 87.7 fL (80.0-100.0); MEAN PLATELET VOLUME 12.4 fL (7.4-10.4); MONOCYTES 8.6 % (2-11); NEUTROPHILS 74.8 % (40-80); RBC 3.65 10x6/uL (4.00-5.40); RDW 14.3 % (11.5-14.5); WBC 9.9 10x3/uL (4.8-10.8)
[2018-07-23 05:54] LABS: PLATELET COUNT 259 10x3/uL (130-400)
[2018-07-23 05:57] LABS: CALC OSMOLALITY 280 mosm/kg (275-300); CALCIUM 7.8 mg/dL (8.5-10.1); CARBON DIOXIDE 25.8 mmol/L (21.0-32.0); CHLORIDE - SERUM 107 mmol/L (98-107); CREATININE - SERUM 0.7 mg/dL (0.6-1.3); GLUCOSE 106 mg/dL (74-106); POTASSIUM - SERUM 3.5 mmol/L (3.5-5.1); SODIUM 141 mmol/L (136-145); UREA NITROGEN 13 mg/dL (7-18); eGFR NON AFRICAN AMERICAN 86 mL/min (90-120)
--- NOTE | 2018-07-23 07:15 | NUR ---
REC'D IN WALKING ROUND AWAKE AND ALERT. RESP EVEN AND UNLABORED WITH NO DISTRESS NOTED. CAN VOICE NEEDS AND WANTS. NO C/O NOTED OR VOICED. ASSESSMENT COMPLETED. C/L IN REACH AT BEDSIDE.
[2018-07-23 09:57] VITALS: BP 142/59
[2018-07-23] MEDS ORDERED: BACTRIM 400/80 MG TA PO (10:37)
--- NOTE | 2018-07-23 12:18 | MORECARE ---
CASE MANAGEMENT DISCHARGE SUMMARY PATIENT: EDWAR OSCAR UNIT: [id number] ADM DATE: 07/19/18 AGE: 78 : 40 SEX: F ROOM/BED: D.2239 AUTHOR: LISTE NGUYEN PHYSICIAN: REFERRING PHYSICIAN: KAREN RHODES MD DATE OF SERVICE: 07/23/18 Discharge Plan Patient Name: EDWAR OSCAR Facility: [facility]:[place] : 1940 Planned Disposition: Home Anticipated Discharge Date: Discharge Date: Expected LOS: Initial Reviewer: [email or web address] Initial Review Date: 07/20/2018 Generated: 07/23/18 1:18 pm Comments DCP- Discharge Planning Updated by [email or web address]: Yasemin Xiong on 07/23/18 11:[address] Received order for discharge. I spoke to Judi at [facility]. They are waiting on a call back from Dr. Bassett to ensure that she will not need any chemotherapy while at their skilled facility. She is aware that [facility] has talked to Dr. Childs, but states they need to verify themselves. CM will continue to follow and assist with discharge planning/needs. DCP- Discharge Planning Updated by [email or web address]: Yasemin Xiong on 07/22/18 9:[address] CM met with patient to discuss discharge planning. ANA LUISA for [facility] for SNF signed. I spoke with Judi at [facility] and clinical faxed. CM will continue to follow and assist with discharge planning/needs. DCP- Discharge Planning Updated by [email or web address]: Yasemin Xiong on 07/20/18 10:[address] Patient Name: EDWAR OSCAR Admission Status: ER Accout number: [id number] Admission Date: 07-19-2018 : 1940 Admission Diagnosis: Attending: KAERN RHODES Current LOS: 1 Anticipated DC Date: Planned Disposition: Home Primary Insurance: MEDICARE A & B Discharge Planning Comments: CM met with patient and her to discuss discharge planning/needs. She is getting in the shower and gives permission to speak with her concerning discharge plan. He states she lives with him. She is independent with all ADL's and AIDL's. States she has been using the walker the last few days prior to admission to aide in ambulation. I discussed availability of SNF, inpatient rehab, additional DME and home health services. At this time, declines needs. States "unsure of what we need until we know how her knee gets." CM will continue to follow and assist with discharge planning/needs. Seafood Packer: Yaseminchristine Xiong DCPIA - Discharge Planning Initial Assessment Updated by [email or web address]: Yasemin Xiong on 07/20/18 10:58 am * Is the patient Alert and Oriented? Yes * How many steps to enter\\exit or inside your home? 2/0 * PCP Dr. Sterling * Pharmacy [facility] by [facility] * Preadmission Environment Home with Family * ADLs Partial Dependent * Partial ADLs (Assistance needed) Ambulation * Equipment Cane Rolling Walker Wheelchair * List name and contact numbers for known caregivers / representatives who currently or will assist patient after discharge: Dom Oscar * Verbal permission to speak to the caregivers and representatives has been obtained from the patient. Yes * Community resources currently utilized None * Additional services required to return to the preadmission environment? No * Can the patient safely return to the preadmission environment? Yes * Has this patient been hospitalized within the prior 30 days at any hospital? No Coverage Notice Reviewer: [email or web address] - Yasemin Xiong Notice Issued Date-Time: 07/23/2018 12:07 Notice Type: IM Discharge Notice Notice Delivered To: Patient Relationship to Patient: Self Transport Technician Name: Delivery Method: HAND - Hand Delivered Jill Days: Prior Verbal Notification: Recipient Understood Notice: Yes Recipient Signature: Yes Med Rec Note Co-signed by Attending: Coverage Notice Comment: IMM explained, signed, given, copy on chart Last DP export: 07/22/18 9:07 a Patient Name: EDWAR OSCAR Page 77981 at 1218 All edits/amendments must be made on the electronic document DICTATION DATE: 07/23/181216 BELT CONVEYOR DRIER: LOI 07/23/181216 RPT#: [id number] DC DATE: STATUS: ADM IN [facility] [address] [place] [address] END OF REPORT
[2018-07-23 14:20] VITALS: BP 157/54
--- NOTE | 2018-07-23 14:29 | NUR ---
I have reviewed this patient and I concur with the Shift Assessment completed by the Licensed Practical Nurse today this shift.
--- NOTE | 2018-07-23 14:43 | MORECARE ---
CASE MANAGEMENT DISCHARGE SUMMARY PATIENT: EDWAR OSCAR UNIT: [id number] ADM DATE: 07/19/18 AGE: 78 : 40 SEX: F ROOM/BED: D.2239 AUTHOR: WENDY,DOC PHYSICIAN: REFERRING PHYSICIAN: KAREN RHODES MD DATE OF SERVICE: 07/23/18 Discharge Plan Patient Name: EDWAR OSCAR Facility: [facility]:[place] : 1940 Planned Disposition: Home Anticipated Discharge Date: Discharge Date: Expected LOS: Initial Reviewer: [email or web address] Initial Review Date: 07/20/2018 Generated: 07/23/18 3:43 pm Comments DCP- Discharge Planning Updated by [email or web address]: Yasemin Tyrese on 07/23/18 1:[address] Received a call that she has been accepted to [facility]. They will pick her up at 1545, nurse Jhoan notified. She will be going to a skilled (Medicare) bed. DCP- Discharge Planning Updated by [email or web address]: Yasemin Xiong on 07/23/18 11:[address] Received order for discharge. I spoke to Judi at [facility]. They are waiting on a call back from Dr. Bassett to ensure that she will not need any chemotherapy while at their skilled facility. She is aware that [facility] has talked to Dr. Childs, but states they need to verify themselves. CM will continue to follow and assist with discharge planning/needs. DCP- Discharge Planning Updated by [id number]: Yasemin Xiong on 07/22/18 9:[address] CM met with patient to discuss discharge planning. [facility] for [facility] for SNF signed. I spoke with Judi at [facility] and clinical faxed. CM will continue to follow and assist with discharge planning/needs. DCP- Discharge Planning Updated by [email or web address]: Yasemin Xiong on 07/20/18 10:[address] Patient Name: EDWAR OSCAR Admission Status: ER Accout number: [id number] Admission Date: 07-19-2018 : 1940 Admission Diagnosis: Attending: KAREN RHODES Current LOS: 1 Anticipated DC Date: Planned Disposition: Home Primary Insurance: MEDICARE A & B Discharge Planning Comments: CM met with patient and her to discuss discharge planning/needs. She is getting in the shower and gives permission to speak with her concerning discharge plan. He states she lives with him. She is independent with all ADL's and AIDL's. States she has been using the walker the last few days prior to admission to aide in ambulation. I discussed availability of SNF, inpatient rehab, additional DME and home health services. At this time, declines needs. States "unsure of what we need until we know how her knee gets." CM will continue to follow and assist with discharge planning/needs. Top Lift And Automatic Window Repairer: Yasemin Xiong DCPIA - Discharge Planning Initial Assessment Updated by [id number]: Yasemin Xiong on 07/20/18 10:58 am * Is the patient Alert and Oriented? Yes * How many steps to enter\\exit or inside your home? 2/0 * PCP Dr. Sterling * Pharmacy [facility] by [facility] * Preadmission Environment Home with Family * ADLs Partial Dependent * Partial ADLs (Assistance needed) Ambulation * Equipment Cane Rolling Walker Wheelchair * List name and contact numbers for known caregivers / representatives who currently or will assist patient after discharge: Dom Oscar * Verbal permission to speak to the caregivers and representatives has been obtained from the patient. Yes * Community resources currently utilized None * Additional services required to return to the preadmission environment? No * Can the patient safely return to the preadmission environment? Yes * Has this patient been hospitalized within the prior 30 days at any hospital? No Coverage Notice Reviewer: [id number] Princess Xiong Notice Issued Date-Time: 07/23/2018 12:07 Notice Type: IM Discharge Notice Notice Delivered To: Patient Relationship to Patient: Self Automobile Repossessor Name: Delivery Method: HAND - Hand Delivered Jill Days: Prior Verbal Notification: Recipient Understood Notice: Yes Recipient Signature: Yes Med Rec Note Co-signed by Attending: Coverage Notice Comment: IMM explained, signed, given, copy on chart Reviewer: [id number] Princess Xiong Notice Issued Date-Time: 07/23/2018 14:34 Notice Type: Patient Choice Letter Notice Delivered To: Patient Relationship to Patient: Self Automobile Repossessor Name: Delivery Method: HAND - Hand Delivered Jill Days: Prior Verbal Notification: Recipient Understood Notice: Yes Recipient Signature: Yes Med Rec Note Co-signed by Attending: Coverage Notice Comment: ANA LUISA for [facility] signed Last DP export: 07/23/18 11:18 a Patient Name: EDWAR OSCAR Page [id number] at 1443 All edits/amendments must be made on the electronic document DICTATION DATE: 07/23/18 144 BEHAVIORAL HEALTH THERAPIST: LOI 07/23/18 1443 RPT#: [id number] DC DATE: STATUS: ADM IN [facility] [address] [place] [address] END OF REPORT
--- NOTE | 2018-07-23 15:24 | NUR ---
PIV removed per primary nurse request.
--- NOTE | 2018-07-23 16:42 | NUR ---
DC HOME IN STABLE CONDITION WITH NO C/O NOTED. IV DC.
== END 2018-07-23 16:43 | DRG 563 ==
LOC: D.ER 11:41 → OBSVTIME 15:33 → D.EDHOLD 15:33 → D.MS 15:33
PROVIDERS: Family Medicine; Internal Medicine Medical Oncology; Orthopaedic Surgery; ADMIT Internal Medicine Nephrology; ATTEND Internal Medicine Nephrology
PROC: 0S9D3ZX Drainage of Left Knee Joint, Percutaneous Approach, Diagnostic (ICD-10-PCS; principal; 2018-07-20)
DX: S83.222A Peripheral tear of medial meniscus, current injury, left knee, initial encounter (principal); C91.10 Chronic lymphocytic leukemia of B-cell type not having achieved remission; N39.0 Urinary tract infection, site not specified; M25.562 Pain in left knee; M60.9 Myositis, unspecified; S83.282A Other tear of lateral meniscus, current injury, left knee, initial encounter; L27.1 Localized skin eruption due to drugs and medicaments taken internally; T45.1X5A Adverse effect of antineoplastic and immunosuppressive drugs, initial encounter

== ENCOUNTER 2019-04-08 11:30 | Inpatient (IN) | payer MEDICARE, BC ==
[~2019-04-08] VITALS: Ht 162.6 cm; Wt 61.8 kg
--- NOTE | ~2019-04-08 | OP ---
PATIENT NAME: EDWAR CHRISTENSEN MEDICAL RECORD: [id number] :40 LOCATION:D.MS [address] ADMISSION DATE:04/08/19 SURGEON: ANDER BLAKE MD DATE OF OPERATION: 04/08/2019 PREOPERATIVE DIAGNOSES: 1. Abscess of the left groin. 2. Chronic lymphocytic leukemia. POSTOPERATIVE DIAGNOSES: 1. Abscess of the left groin. 2. Chronic lymphocytic leukemia. PROCEDURE: I and D of the left groin. SURGEON: Ander Blake MD REPORT OF PROCEDURE: The patient's left groin was prepped and draped in sterile fashion. An oblique incision was made overlying an area of fluctuance and there was a purulent drainage removed. Cultures were taken times 2. We then irrigated out the wound with peroxide and saline solution and then packed the wound with 2 inch Kerlix dipped in peroxide. This abscess cavity appeared to be just in the subcutaneous tissue and did not penetrate into the deep tissues or intramuscularly. COMPLICATIONS: None. CONDITION: Stable. ANESTHESIA: General endotracheal. BLOOD LOSS: Minimal. TRANSINT:[id number] Voice Confirmation ID: [id number] DOCUMENT ID: [id number] ANDER BLAKE MD CC: FREDDIE BRUNSON MD [id number] DICTATION DATE: 04/08/19 162 WATER CHEMIST: 04/08/192154 DIS IN 04/09/19 [id number] [place] [address]
[~2019-04-08 11:30] MED LIST changes: +BACTRIM 400/80 MG TA PO; +MULTAQ400 MG PO; +PROBIOTIC1 EAC1 PO
--- NOTE | 2019-04-08 12:15 | NUR ---
TO ROOM [address] QUINTANA OFFICE.ASSESSMENT PER FLOW SHEET. PT IS NPO FOR POSS PROCEDURE.IV SITED TO LEFT FOREARM X1 STICK,22G.ORIENTATION TO ROOM WITH PATIENT AND . CONTACT ISOLATION INITIATED.
[2019-04-08] MEDS ORDERED: MUPIROCIN22 GM TOPICAL (13:03)
[2019-04-08] MEDS ORDERED: MOBIC7.5 MG PO (13:04)
[2019-04-08] MEDS ORDERED: DOXYCYCLINE HY100 M2 PO (13:05)
[2019-04-08 13:24] LABS: ALBUMIN 3.4 g/dL (3.4-5.0); ANION GAP 13.1 mmol/L (8-16); BILIRUBIN - TOTAL 0.47 mg/dL (0.2-1.3); C-REACTIVE PROTEIN 14.2 mg/dL (0.0-0.9); CALCIUM 8.6 mg/dL (8.5-10.1); CARBON DIOXIDE 28.6 mmol/L (21.0-32.0); CREATININE - SERUM 0.8 mg/dL (0.6-1.3); POTASSIUM - SERUM 3.7 mmol/L (3.5-5.1); PROTEIN - SERUM 6.7 g/dL (6.4-8.2)
[2019-04-08] MEDS ORDERED: VENCLEXTA PO (13:43)
[2019-04-08 14:07] VITALS: BP 130/55; BMI 23.4
[2019-04-08 14:15] LABS: BASOPHILS 0 % (0-2); EOSINOPHILS 0.2 % (0-7); IMMATURE GRANULOCYTES 0.2 % (0-5); MCH 30.6 pg (26.0-34.0); MCHC 32.4 g/dL (31.0-37.0); MCV 94.4 fL (80.0-100.0); MEAN PLATELET VOLUME 10.7 fL (7.4-10.4); MONOCYTES 12.8 % (2-11); NEUTROPHILS 72.8 % (40-80); RBC 3.92 10x6/uL (4.00-5.40); RDW 13.9 % (11.5-14.5); WBC 8.3 10x3/uL (4.8-10.8)
[2019-04-08 14:18] LABS: PLATELET COUNT 177 10x3/uL (130-400)
[2019-04-08 14:58] VITALS: Ht 162.6 cm; Wt 61.8 kg
--- NOTE | 2019-04-08 15:35 | NUR ---
TO OR VIA BED
--- NOTE | 2019-04-08 15:35 | NUR ---
TO OR VIA BED
[2019-04-08 15:48] VITALS: BP 116/47
[2019-04-08 17:07] VITALS: BP 125/60
--- NOTE | 2019-04-08 17:07 | NUR ---
PT IS BACK IN ROOM. DRESSING TO LEFT GROIN/ABD CDI. SHE DENIES PAIN AT PRESENT.MONITOR FOR NEEDS.
[2019-04-08 20:00] VITALS: BP 111/45
--- NOTE | 2019-04-08 20:00 | NUR ---
A/O WITH NO SIGNS OF DISTRESS. IV TO THE LT FOREARM WITH NO REDNESS OR SWELLING. CLEAN/INTACT DRESSING TO THE PUBIC AREA. RASH NOTED THROUGHOUT BODY. DENIES NO NEEDS AT THIS TIME. CONTINUE PLAN OF CARE.
[2019-04-08 23:57] VITALS: BP 134/45
[2019-04-09 04:00] VITALS: BP 98/48
[2019-04-09 05:55] LABS: BASOPHILS 0 % (0-2); EOSINOPHILS 0.1 % (0-7); HEMATOCRIT 34.9 % (36.0-48.0); HEMOGLOBIN 11.1 g/dL (12-16); IMMATURE GRANULOCYTES 0.1 % (0-5); LYMPHOCYTES 12.6 % (15-50); MCH 30.3 pg (26.0-34.0); MCHC 31.8 g/dL (31.0-37.0); MCV 95.4 fL (80.0-100.0); MEAN PLATELET VOLUME 10.4 fL (7.4-10.4); MONOCYTES 15.5 % (2-11); NEUTROPHILS 71.7 % (40-80); PLATELET COUNT 155 10x3/uL (130-400); RBC 3.66 10x6/uL (4.00-5.40); RDW 13.9 % (11.5-14.5); WBC 6.7 10x3/uL (4.8-10.8)
[2019-04-09 06:39] LABS: ALBUMIN 2.6 g/dL (3.4-5.0); ALKALINE PHOSPHATASE 93 U/L (46-116); ALT (SGPT) 23 U/L (10-68); BILIRUBIN - TOTAL 0.45 mg/dL (0.2-1.3); CALC OSMOLALITY 276 mosm/kg (275-300); CALCIUM 8.3 mg/dL (8.5-10.1); CARBON DIOXIDE 28.9 mmol/L (21.0-32.0); CHLORIDE - SERUM 105 mmol/L (98-107); CREATININE - SERUM 0.7 mg/dL (0.6-1.3); GLUCOSE 93 mg/dL (74-106); PHOSPHOROUS 2.8 mg/dL (2.5-4.9); POTASSIUM - SERUM 3.5 mmol/L (3.5-5.1); SODIUM 139 mmol/L (136-145); THYROID STIMULATING HORMONE 2.27 uIU/mL (0.36-3.74); eGFR NON AFRICAN AMERICAN 85 mL/min (90-120)
[2019-04-09 06:45] LABS: UREA NITROGEN 11 mg/dL (7-18)
[2019-04-09 07:49] VITALS: BP 156/56
[2019-04-09 12:00] VITALS: BP 154/56
[2019-04-09] MEDS ORDERED: LOZOL1.25 MG PO (13:32)
[2019-04-09] MEDS ORDERED: SMZ-TMP DS 800-1 TAB PO (13:32)
[2019-04-09] MEDS ORDERED: HYDROCODON-ACE1 EA10 PO (14:29)
--- NOTE | 2019-04-09 15:04 | NUR ---
DISCHARGE PAPERWORK SIGNED, ALL QUESTIONS ANSWERED. IV TO LEFT FOREARM DC'D, TIP INTACT. ESCORTED OUT BY WHEELCHAIR
== END 2019-04-09 15:15 | disposition home or self-care (01) | DRG 580 ==
LOC: D.MS 11:30
PROVIDERS: Emergency Medicine; Surgery; ADMIT Family Medicine; ATTEND Family Medicine
PROC: 0Y950ZZ Drainage of Right Inguinal Region, Open Approach (ICD-10-PCS; principal; 2019-04-08 14:00)
DX: L02.214 Cutaneous abscess of groin (principal); C91.10 Chronic lymphocytic leukemia of B-cell type not having achieved remission; I10 Essential (primary) hypertension; Z85.3 Personal history of malignant neoplasm of breast

== ENCOUNTER 2019-05-05 06:12 | Day surgery (SDC) | payer MEDICARE, BC ==
[~2019-05-05] VITALS: Ht 162.6 cm; Wt 62.6 kg
--- NOTE | ~2019-05-05 | OP ---
PATIENT NAME: EDWAR CHRISTENSEN MEDICAL RECORD: [id number] :40 LOCATION:D.OPS ADMISSION DATE: SURGEON: ENRIQUE BLAKE MD DATE OF OPERATION: 05/05/2019 PREOPERATIVE DIAGNOSES: 1. Right groin abscess. 2. Chronic lymphocytic leukemia. 3. Hypertension. 4. Hypercholesterolemia. POSTOPERATIVE DIAGNOSES: 1. Right groin abscess. 2. Chronic lymphocytic leukemia. 3. Hypertension. 4. Hypercholesterolemia. PROCEDURE: I&D of right groin abscess. SURGEON: Enrique Blake MD REPORT OF PROCEDURE: The patient's right groin was prepped and draped in sterile fashion. A transverse incision was made through the area of fluctuance and there was purulent material obtained. Cultures were taken times 2. We then irrigated out the wound with peroxide. There was some necrotic appearance to the skin and it was very thin, so I went ahead and did debridement of the skin overlying the abscess and left a small circular opening. We probed the opening and could see that there was no sign of any fistulous tracts. We then irrigated out the wound some more with the peroxide and saline solution and then packed the wound with half-inch packing strips. COMPLICATIONS: None. CONDITION: Stable. ANESTHESIA: General endotracheal. BLOOD LOSS: Minimal. TRANSINT:[id number] Voice Confirmation ID: [id number] DOCUMENT ID: [id number] ENRIQUE BLAKE MD CC: FREDDIE BRUNSON MD and LINDA MCLAUGHLIN MD [id number] DICTATION DATE: 05/05/19 0957 TUBE INSPECTOR: 05/05/19 1329 [facility] [place] 05/05/[address] [address]
[~2019-05-05 06:12] MED LIST changes: +DOXYCYCLINE HY100 M2 PO; +HYDROCODON-ACE1 EA10 PO; +MOBIC7.5 MG PO; +MULTAQ400 MG; +MUPIROCIN22 GM TOPICAL; +SMZ-TMP DS 800-1 TAB PO; +VENCLEXTA PO
[2019-05-05 06:34] LABS: BASOPHILS 0 % (0-2); EOSINOPHILS 0.1 % (0-7); HEMATOCRIT 39.7 % (36.0-48.0); HEMOGLOBIN 12.7 g/dL (12-16); IMMATURE GRANULOCYTES 0.6 % (0-5); LYMPHOCYTES 21.3 % (15-50); MCH 30.1 pg (26.0-34.0); MCV 94.1 fL (80.0-100.0); MEAN PLATELET VOLUME 10.4 fL (7.4-10.4); MONOCYTES 13.8 % (2-11); NEUTROPHILS 64.2 % (40-80); RBC 4.22 10x6/uL (4.00-5.40); RDW 15.1 % (11.5-14.5); WBC 7.2 10x3/uL (4.8-10.8)
[2019-05-05 06:46] LABS: PLATELET COUNT 202 10x3/uL (130-400)
[2019-05-05 06:52] LABS: CARBON DIOXIDE 27.6 mmol/L (21.0-32.0); CREATININE - SERUM 1.2 mg/dL (0.6-1.3); POTASSIUM - SERUM 4.6 mmol/L (3.5-5.1)
[2019-05-05 07:19] LABS: APTT 26.7 SECONDS (22.8-39.4); INR 0.96 (0.85-1.17); PROTIME 12.7 SECONDS (11.6-15.0)
[2019-05-05 07:45] VITALS: BP 125/54; Ht 162.6 cm; Wt 62.6 kg
[2019-05-05] MEDS ORDERED: HYDROCODON-ACE1 EAC7 PO (09:54)
--- NOTE | 2019-05-05 10:27 | NUR ---
1015-REC'D FROM RR.AWAKE AND ALERT,VERY PLEASANT. VSS. DENIES PAIN. DRESSING TO PELVIS AREA CDI. IV PATENT TO LEFT HAND AT KVO. REVIEWED DISCHARGE CRITERIA. AT BEDSIDE,CL IN EASY REACH
--- NOTE | 2019-05-05 10:28 | NUR ---
1022-FULL LIQUID TRAY TO ROOM.
--- NOTE | 2019-05-05 11:54 | NUR ---
1050-TOLERATED TRAY. DENIES PAIN,VSS, DRESSING CDI. REMOVED IV FROM LEFT HAND WITH CATH INTACT,DISPOSED INTO SHARPS,COVERED SITE WITH GUAZE.SECURED WITH MEDIPORE TAPE
--- NOTE | 2019-05-05 11:55 | NUR ---
1110-PT AND SPOUSE CONCERNED WITH WHO WILL BE CHANGING DRESSING DAILY. CONTACTED VIA PHONE. HE REPORTS HER HAS BEEN HELPING WITH PREVIOUS DRESSING CHANGES. SEND PT PACKING STRIP FROM SURGERY
--- NOTE | 2019-05-05 11:56 | NUR ---
1118-SPOKE WITH SURGERY. PACKING WAS THROWN AWAY. DEMOND TO LOOK FOR MORE AND BRING OVER TO PT. PT AWARE WE ARE WAITING ON PACKING STRIP
--- NOTE | 2019-05-05 11:57 | NUR ---
1123- CONTACTED [facility]ERIALS FOR PACKING STRIP, SURGERY DOES NOT HAVE ANY
--- NOTE | 2019-05-05 11:58 | NUR ---
1130- PACKING STRIP BROUGHT TO OPS BY MATERIALS. REVIEWED DISCHARGE INSTRUCTIONS, DRESSING CHANGES DAILY AND PACKING WITH PT, FOLLOW UP APPOINTMENT AND DR BLAKE'S OFFICE NUMBER IF ANY QUESTIONS OR CONCERNS SHALL ARISE PRIOR TO FOLLOW UP. VERBALIZED UNDERSTANDING. ESCORTED OUT VIA W/C WITH SPOUSE AWAITING TO DRIVE HOME
== END 2019-05-05 11:30 | disposition home or self-care (01) ==
LOC: D.OPS 06:12 → D.PAN 08:45 → D.OPS 11:30
PROVIDERS: Anesthesiology; ATTEND Surgery
DX: L02.214 Cutaneous abscess of groin (principal); C91.10 Chronic lymphocytic leukemia of B-cell type not having achieved remission; I10 Essential (primary) hypertension; E78.00 Pure hypercholesterolemia, unspecified